=== PATIENT | female | born 1980 | race Caucasian/White ===

== ENCOUNTER 2017-10-30 05:51 | Day surgery (SDC) | payer OTHER ==
[2017-10-30] MEDS ORDERED: MIDAZOLAM 1 MG/ML 2 ML INJ ×2 (07:41→07:42)
[2017-10-30] MEDS ORDERED: FENTAnyl 50 MCG/ML VIAL (07:41)
== END 2017-10-30 11:05 | disposition home or self-care (01) ==
LOC: GIL 05:51
DX: K21.9 Gastro-esophageal reflux disease without esophagitis (principal); B96.81 Helicobacter pylori [H. pylori] as the cause of diseases classified elsewhere; K29.70 Gastritis, unspecified, without bleeding
CPT/HCPCS: 43239; 84703; 87081